=== PATIENT | female | born 1970 | race Two or more races ===

== ENCOUNTER → 2024-03-12 | Outpatient (CLI) | payer MEDICAID, SELFPAY ==
--- NOTE | 2024-03-12 | XR_ITS ---
Examination:Right hip AP, lateral, AP pelvis 3 views Technique: Hip AP lateral, AP pelvis, 3 views Exam date and time:March 12, 2024 0952 hours INDICATIONS: Right hip pain beginning one month ago. FINDINGS: Moderate osteopenia Moderate narrowing hip joints bilaterally No right or left hip fracture or dislocation No avascular necrosis Bones of the pelvis intact IMPRESSION: Moderate narrowing hip joints bilaterally.
--- NOTE | 2024-03-12 09:45 | XR_ITS ---
Examination: Lumbar spine 3 views Technique one AP lateral coned lateral lower lumbar spine 3 views Exam date and time: March 12, 2024 0950 hours INDICATIONS: Low back pain radiating down the right side of the back one month FINDINGS: Moderate osteopenia Adequate alignment lumbar vertebral bodies Moderate disc narrowing L5-S1 No spondylolisthesis IMPRESSION: No lumbar fracture Moderate degenerative disc disease L5-S1
== END | disposition home or self-care (01) ==
LOC: CDIM 09:34
PROVIDERS: Referring Provider Nurse Practitioner Family; Visit Provider Nurse Practitioner Family
DX: M51.379 Other intervertebral disc degeneration, lumbosacral region without mention of lumbar back pain or lower extremity pain (principal); M25.852 Other specified joint disorders, left hip; M25.851 Other specified joint disorders, right hip
CPT/HCPCS: 72100; 73502